=== PATIENT | female | born 2000 | race Caucasian/White ===

== ENCOUNTER 2019-03-23 09:58 | Emergency (ER) | payer SELFPAY ==
--- NOTE | 2019-03-23 10:28 | EDM.PDOC ---
ED HPI GENERAL MEDICAL PROBLEM - General Chief Complaint: General Stated Complaint: COUGH,RIGHT EAR HAS FLUID,UNABLE TO KEEP FOOD DOWN Time Seen by Provider: 03/23/19 10:15 Source of Information: Reports: Patient, RN Notes Reviewed - History of Present Illness INITIAL COMMENTS - FREE TEXT/NARRATIVE: 18-year-old female comes in with cough, congestion, wheezing, difficulty breathing. She is 14-1/2 weeks , this is her third . She does have history of asthma but typically only needs to and use her inhaler about once a month. With this infection she has developed worsening cough and wheezing became especially bad during the night and early this morning. She did do an albuterol neb treatment at home a few hours ago and did not get much relief other than getting palpitations and feeling anxious and jittery. She is having drainage from her sinuses with that this morning is coughing and spitting up some yellowish-green phlegm. There's been no fever or chills. She did have sore throat when this started 3 days ago but the throat discomfort now is mostly gone. Right Ear Pain Score (Numeric/FACES): 4 Upper Abdomen Pain Score (Numeric/FACES): 4 - Related Data Allergies Allergy/AdvReac Type Severity Reaction Status Date / Time cefdinir Allergy Delusions Verified 03/23/19 10:12 sulfamethoxazole Allergy Rash Verified 03/23/19 10:12 [From Bactrim] trimethoprim [From Bactrim] Allergy Rash Verified 03/23/19 10:12 Home Meds: Home Meds Albuterol [Ventolin HFA] 2 puff INH Q4HR 03/23/19 [History] Doxylamine Succinate [Unisom] 25 mg PO BEDTIME 03/23/19 [History] Folic Acid 2 mg PO DAILY 03/23/19 [History] Pnv No.122/Iron/Folic Acid [ Multi Tablet] 1 tab PO DAILY 03/23/19 [ History] Progesterone, Micronized [Progesterone] 200 mg PO DAILY 03/23/19 [History] Promethazine [Phenergan] 25 mg PO QID PRN 03/23/19 [History] Past Medical History Respiratory History: Reports: Asthma Psychiatric History: Reports: Depression - Past Surgical History GI Surgical History: Reports: Other (See Below) Other GI Surgeries/Procedures: endoscopy Social & Family History - Tobacco Use Smoking Status *Q: Former Smoker Used Tobacco, but Quit: Yes Month/Year Tobacco Last Used: 4mo ago - Caffeine Use Caffeine Use: Reports: Coffee, Tea Other Caffeine Use: rarely - Recreational Drug Use Recreational Drug Use: Yes Drug Use in Last 12 Months: Yes Recreational Drug Type: Reports: Marijuana/Hashish, Methamphetamine ED ROS GENERAL - Review of Systems Review Of Systems: See Below Constitutional: Denies: Fever, Chills HEENT: Reports: Rhinitis, Sinus Problem (She does have sinus congestion and drainage), Throat Pain (Gone) Respiratory: Reports: Shortness of Breath, Wheezing, Cough, Sputum Cardiovascular: Reports: Chest Pain (With coughing), Palpitations GI/Abdominal: Denies: Abdominal Pain, Vomiting Neurological: Reports: Dizziness (Mild) ED EXAM, GENERAL - Physical Exam Exam: See Below General Appearance: Alert, Mild Distress Nose: Normal Inspection Throat/Mouth: Normal Inspection, Normal Oropharynx Head: No: Facial Swelling Neck: Supple, Full Range of Motion Respiratory/Chest: No Accessory Muscle Use, Respiratory Distress (Moderate), Wheezing. No: Rhonchi Cardiovascular: Regular Rate, Rhythm GI/Abdominal: Soft, Non-Tender Neurological: Alert, Oriented, No Motor/Sensory Deficits Skin Exam: Warm, Dry, Normal Color, No Rash Course - Vital Signs Last Recorded V/S: Last Vital Signs Temp 97.4 F 03/23/19 10:07 Pulse 96 03/23/19 10:07 Resp 18 03/23/19 10:07 BP 104/51 L 03/23/19 10:07 Pulse Ox 100 03/23/19 10:58 - Orders/Labs/Meds Orders: Active Orders 24 hr Category Date Time Status Influenza Vaccine Charge [RC] .DISCHARGE Care 03/23/19 10:20 Active RT Aerosol Therapy [RC] ASDIRECTED Care 03/23/19 10:38 Active Meds: Medications Discontinued Medications Generic Name Dose Route Start Last Admin Trade Name Freq PRN Reason Stop Dose Admin Albuterol/Ipratropium 3 ml 03/23/19 10:38 03/23/19 10:58 Duoneb 3.0-0.5 Mg/3 Ml NEB 03/23/19 10:39 3 ml ONETIME ONE Administration Influenza Virus Vaccine 60 mcg 03/23/19 10:45 03/23/19 11:03 Fluzone Quad Syringe IM 03/23/19 10:46 60 mcg .ONCE ONE Administration Lorazepam 0.5 mg 03/23/19 10:49 03/23/19 11:03 Ativan PO 03/23/19 10:50 0.5 mg ONETIME ONE Administration Prednisone 40 mg 03/23/19 11:22 03/23/19 11:29 Prednisone PO 03/23/19 11:23 40 mg ONETIME ONE Administration - Re-Assessments/Exams Free Text/Narrative Re-Assessment/Exam: 03/23/19 11:23 Have given a DuoNeb, that has helped her breathing quite a lot, also did give 0.25 mg Ativan by mouth as she was quite anxious on arrival and also had palpitations when she did use her inhaler earlier this morning. She is much more relaxed, moving air much more comfortably. Liver dose of prednisone now and have her continue take prednisone 40 mg for the next 3 days to help her get through this. Discharge instructions as documented. Departure - Departure Time of Disposition: 11:24 Disposition: Home, Self-Care 01 Condition: Fair Clinical Impression: Viral upper respiratory infection, Second trimester - Discharge Information Instructions: Upper Respiratory Infection, Adult, [id number] Referrals: PCP,None [Primary Care Provider] - Forms: ED Department Discharge Additional Instructions: Rest, vaporizer or steam as needed, continue to use your albuterol inhaler every 4-6 hours as needed for wheezing, severe cough or difficulty breathing. You've been given prednisone 40 mg orally while here in the ED and you that 40 mg every morning for the next 3 days. Follow-up clinic if not much better within 2-3 days as expected or return to ED as needed if symptoms worsening in any way. - My Orders Last 24 Hours: My Active Orders 03/23/19 10:20 Influenza Vaccine Charge [RC] .DISCHARGE 03/23/19 10:38 RT Aerosol Therapy [RC] ASDIRECTED - Assessment/Plan Last 24 Hours: My Active Orders 03/23/19 10:20 Influenza Vaccine Charge [RC] .DISCHARGE 03/23/19 10:38 RT Aerosol Therapy [RC] ASDIRECTED
[2019-03-23] MEDS ORDERED: Albuterol/Ipratropium 3.0-0.5 MG/3 ML Neb Soln NEB ONE (10:38)
[2019-03-23] MEDS ORDERED: FLU Vacc QS2019-20(6MOS+)/PF 60 MCG/0.5 ML SYRINGE IM ONE (10:45)
[2019-03-23] MEDS ORDERED: LORazepam 0.5 MG Tab PO ONE (10:49)
[2019-03-23] MEDS ORDERED: predniSONE 20 MG Tab PO ONE (11:22)
== END 2019-03-23 11:40 | disposition home or self-care (01) ==
LOC: JD.ED 09:58
DX: O99.512 Diseases of the respiratory system complicating pregnancy, second trimester (principal); J06.9 Acute upper respiratory infection, unspecified; J45.909 Unspecified asthma, uncomplicated; Z3A.14 14 weeks gestation of pregnancy; Z88.1 Allergy status to other antibiotic agents; Z87.891 Personal history of nicotine dependence; Z23 Encounter for immunization; Z88.2 Allergy status to sulfonamides
CPT/HCPCS: 90471; 90686; 94640; 99284; A9270; 99283; G0008; J7620-GY

== ENCOUNTER 2019-09-18 14:50 | Inpatient (IN) | payer BC ==
[2019-09-18] MEDS ORDERED: Ampicillin 2 GM AdvVial IV ONE (15:31)
[2019-09-18] MEDS ORDERED: Sodium Chloride 0.9% 100 ML ONE (15:31)
[2019-09-18] MEDS ORDERED: Nalbuphine 10 MG/ML Syringe IVPUSH PRN (15:33)
[2019-09-18] MEDS ORDERED: Ampicillin 2 GM in Sodium Chloride 0.9% 100 ML IV ONE (15:33)
[2019-09-18] MEDS ORDERED: Sodium Chloride 0.9% 10 ML Syringe FLUSH PRN (15:33)
--- NOTE | 2019-09-18 15:36 | PCM.LDHP ---
L&D History of Present Illness - General Date of Service: 09/18/19 Admit Problem/Dx: Patient Status Order with Admit Dx/Problem 09/18/19 15:33 Patient Status [ADT] Routine Admission Diagnosis/Problem Admission Diagnosis/Problem Normal labor Source of Information: Patient History Limitations: Reports: No Limitations - History of Present Illness Introduction:: Patient is a 19 y/o at 39 2/7 wks who presents in labor. Contractions have been irregular for several days, but today became more frequent. No bleeding or LOF - Related Data Allergies/Adverse Reactions: Allergies Allergy/AdvReac Type Severity Reaction Status Date / Time cefdinir Allergy Delusions Verified 09/18/19 15:45 sulfamethoxazole Allergy Rash Verified 09/18/19 15:45 [From Bactrim] trimethoprim [From Bactrim] Allergy Rash Verified 09/18/19 15:45 Home Medications: Home Meds Albuterol [Ventolin HFA] 2 puff INH Q4HR 03/23/19 [History] Doxylamine Succinate [Unisom] 25 mg PO BEDTIME 03/23/19 [History] Folic Acid 2 mg PO DAILY 03/23/19 [History] No122/Iron/Folic Acid [ Multi Tablet] 1 tab PO DAILY 03/23/19 [ History] Sertraline [Zoloft] 100 mg PO DAILY 07/14/19 [History] Past Medical History Respiratory History: Reports: Asthma 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: , Spontaneous : 3 Para: 0 LMP (Approximate): Psychiatric History: Reports: Depression - Past Surgical History GI Surgical History: Reports: Other (See Below) Other GI Surgeries/Procedures: endoscopy Social & Family History - Tobacco Use Smoking Status *Q: Former Smoker - Caffeine Use Caffeine Use: Reports: Coffee, Tea Other Caffeine Use: rarely - Alcohol Use Alcohol Use History: No - Recreational Drug Use Recreational Drug Type: Reports: Marijuana/Hashish, Methamphetamine (remote history) H&P Review of Systems - Review of Systems: Review Of Systems: See Below General: Reports: No Symptoms Pulmonary: Reports: No Symptoms Cardiovascular: Reports: No Symptoms Gastrointestinal: Reports: Abdominal Pain Genitourinary: Reports: No Symptoms Musculoskeletal: Reports: No Symptoms Psychiatric: Reports: No Symptoms Neurological: Reports: No Symptoms L&D Exam - Exam Exam: See Below - OB Specific Contraction Intensity: Moderate Movement: Active Heart Tones: Present Heart Tones per Min: 130 Heart Rate (FHR) Variability: Moderate (6-25 bmp) - Montague Score Montague Score Cervix Position: Anterior Montague Score Consistency: Soft Montague Score Effacement: >80% Montague Score Dilation: 3-4 cm Montague Score 's Station: -2 Montague Score Total: 10 - Exam General: Alert, Oriented, Cooperative Lungs: Clear to Auscultation, Normal Respiratory Effort Cardiovascular: Regular Rate, Regular Rhythm GI/Abdominal Exam: Soft, Non-Tender Genitourinary: Normal external exam - Patient Data Result Diagrams: 09/18/19 15:45 - Problem List (1) 39 weeks gestation of SNOMED Code(s): 71547365 ICD Code: Z3A.39 - 39 WEEKS GESTATION OF Status: Acute Current Visit: Yes (2) GBS carrier SNOMED Code(s): 6039170714798 ICD Code: Z22.330 - CARRIER OF GROUP B STREPTOCOCCUS Status: Acute Current Visit: Yes Problem List Initiated/Reviewed/Updated: Yes Orders Last 24hrs: Active Orders 24 hr Category Date Time Status Patient Status [ADT] Routine ADT 09/18/19 15:33 Ordered Activity as Tolerated [RC] PFP Care 09/18/19 15:33 Ordered Communication Order [RC] ASDIRECTED Care 09/18/19 15:33 Ordered Heart Tones [RC] ASDIRECTED Care 09/18/19 15:33 Ordered Non Stress Test [RC] PER UNIT ROUTINE Care 09/18/19 15:33 Ordered Notify Provider [RC] PFP Care 09/18/19 15:33 Ordered Notify Provider [RC] PRN Care 09/18/19 15:33 Ordered Peripheral IV Care [RC] . DIRECTED Care 09/18/19 15:33 Ordered Vital Signs [RC] PER UNIT ROUTINE Care 09/18/19 15:33 Ordered Regular Diet [DIET] Diet 09/18/19 Dinner Ordered CBC W/O DIFF,HEMOGRAM [HEME] Routine Lab 09/18/19 15:33 Ordered RAPID PLASMA REAGIN,RPR [CHEM] Routine Lab 09/18/19 15:33 Ordered TYPE AND SCREEN [BBK] Routine Lab 09/18/19 15:33 Ordered Ampicillin 1 gm Med 09/18/19 15:45 Ordered Sodium Chloride 0.9% [Normal Saline] 100 ml IV Q4H Ampicillin 2 gm Med 09/18/19 15:33 Ordered Sodium Chloride 0.9% [Normal Saline] 100 ml IV ONETIME Lactated Ringers [Ringers, Lactated] 1,000 ml Med 09/18/19 15:45 Ordered IV ASDIRECTED Nalbuphine [Nubain] Med 09/18/19 15:33 Ordered 10 mg IVPUSH Q2H PRN Ondansetron [Zofran] Med 09/18/19 15:33 Ordered 4 mg IVPUSH Q4H PRN Oxytocin/Lactated Ringers [Pitocin in LR 10 Units/1,000 Med 09/18/19 15:45 Ordered ML] 10 unit in 1,000 ml IV .CONTINUOUS Sertraline Med 09/19/19 09:00 Ordered 100 mg PO DAILY Sodium Chloride 0.9% [Saline Flush] Med 09/18/19 15:33 Ordered 10 ml FLUSH ASDIRECTED PRN Electronic Heart Tones Ext w TOCO [WOMSER] Oth 09/18/19 15:33 Ordered Routine Electronic Heart Tones Internal [WOMSER] Per Unit Oth 09/18/19 15:33 Ordered Routine Peripheral IV Insertion Adult [OM.PC] Routine Oth 09/18/19 15:33 Ordered Resuscitation Status Routine Resus Stat 09/18/19 15:33 Ordered Medication Orders Ampicillin Sodium 2 gm/ Sodium (Chloride) 100 mls @ 200 mls/hr IV ONETIME ONE Stop: 09/18/19 16:02 Ampicillin Sodium 1 gm/ Sodium (Chloride) 100 mls @ 200 mls/hr IV Q4H BAO Lactated Ringer's (Ringers, Lactated) 1,000 mls @ 100 mls/hr IV ASDIRECTED BAO Oxytocin/Lactated Ringer's (Pitocin In Lr 10 Units/1,000 Ml) 10 unit in 1,000 mls @ 500 mls/hr IV .CONTINUOUS BAO Nalbuphine HCl (Nubain) 10 mg IVPUSH Q2H PRN PRN Reason: Pain Ondansetron HCl (Zofran) 4 mg IVPUSH Q4H PRN PRN Reason: Nausea/Vomiting Sodium Chloride (Saline Flush) 10 ml FLUSH ASDIRECTED PRN PRN Reason: Keep Vein Open Assessment/Plan Comment:: * labs * GBS positive, ampicillin started * Pain management per patient preference * Anticipate
[2019-09-18] MEDS ORDERED: Oxytocin/Lactated Ringers 10 UNIT/1,000 ML BAG IV SCH ×2 (15:45→23:00)
[2019-09-18] MEDS ORDERED: fentaNYL 100 MCG/2 ML SDV EPIDUR PRN (16:01)
[2019-09-18] MEDS ORDERED: Ondansetron 4 MG/2 ML SDV IVPUSH PRN (16:01)
[2019-09-18] MEDS ORDERED: ePHEDrine 50 MG/ML SDV IVPUSH PRN (16:01)
--- NOTE | 2019-09-18 16:07 | PCM.PREANE ---
Preanesthetic Assessment - Anesthesia/Transfusion/Family Hx Anesthesia History: Prior Anesthesia Without Reaction Family History of Anesthesia Reaction: No Transfusion History: No Prior Transfusion(s) Intubation History: Unknown - Review of Systems General: No Symptoms Pulmonary: No Symptoms (Asthma/Seasonal allergies/ last used inhaler (albuterol ) one week ago.) Cardiovascular: No Symptoms, Lightheadedness (Only with hypoglycemic episodes) Gastrointestinal: No Symptoms (GERD), Constipation Neurological: No Symptoms (Chronic lower back pain, history of bulging disks, and spondylolisthesis), Numbness (bilateral CTS with ) Other: Reports: Sinus Problem (seasonal allergies), Depression, Anxiety - Physical Assessment NPO Status Date: 09/18/19 NPO Status Time: 12:30 Vital Signs: HR:97 BP: 126/77 Resp: 20 Temp: 98 Sat: 99% Height: 1.55 m Weight: 108.409 kg ASA Class: 2 Mental Status: Alert & Oriented x3 Airway Class: Mallampati = 2 Dentition: Reports: Normal Dentition, Caries Thyro-Mental Finger Breadths: 3 Mouth Opening Finger Breadths: 3 ROM/Head Extension: Full Lungs: Clear to Auscultation, Normal Respiratory Effort Cardiovascular: Regular Rate, Regular Rhythm, No Murmurs - Lab Values: Laboratory Last Values WBC 15.83 K/mm3 (3.98-10.04) H 09/18/19 15:45 RBC 4.20 M/mm3 (3.98-5.22) 09/18/19 15:45 Hgb 12.2 gm/dl (11.2-15.7) 09/18/19 15:45 Hct 37.1 % (34.1-44.9) 09/18/19 15:45 MCV 88.3 fl (79.4-94.8) 09/18/19 15:45 MCH 29.0 pg (25.6-32.2) 09/18/19 15:45 MCHC 32.9 g/dl (32.2-35.5) 09/18/19 15:45 RDW Std Deviation 45.1 fL (36.4-46.3) 09/18/19 15:45 Plt Count 217 K/mm3 (182-369) 09/18/19 15:45 MPV 9.8 fl (9.4-12.3) 09/18/19 15:45 Above labs reviewed and noted and within acceptable ranges to proceed with epidural if desired. - Allergies Allergies/Adverse Reactions: Allergies Allergy/AdvReac Type Severity Reaction Status Date / Time cefdinir Allergy Delusions Verified 09/18/19 15:45 sulfamethoxazole Allergy Rash Verified 09/18/19 15:45 [From Bactrim] trimethoprim [From Bactrim] Allergy Rash Verified 09/18/19 15:45 - Anesthesia Plan Pre-Op Medication Ordered: None - Acknowledgements Anesthesia Type Planned: Epidural Pt an Appropriate Candidate for the Planned Anesthesia: Yes Alternatives and Risks of Anesthesia Discussed w Pt/Guardian: Yes Pt/Guardian Understands and Agrees with Anesthesia Plan: Yes PreAnesthesia Questionnaire Respiratory History: Reports: Asthma 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: , 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 Psychiatric History: Reports: Depression - Past Surgical History GI Surgical History: Reports: Other (See Below) Other GI Surgeries/Procedures: endoscopy - SUBSTANCE USE Smoking Status *Q: Former Smoker Recreational Drug Type: Reports: Marijuana/Hashish, Methamphetamine (remote history) - HOME MEDS Home Medications: Home Meds Albuterol [Ventolin HFA] 2 puff INH Q4HR 03/23/19 [History] Doxylamine Succinate [Unisom] 25 mg PO BEDTIME 03/23/19 [History] Folic Acid 2 mg PO DAILY 03/23/19 [History] No122/Iron/Folic Acid [ Multi Tablet] 1 tab PO DAILY 03/23/19 [ History] Sertraline [Zoloft] 100 mg PO DAILY 07/14/19 [History] - CURRENT (IN HOUSE) MEDS Current Meds: Current Medications Ampicillin Sodium 2 gm/ Sodium (Chloride) 100 mls @ 200 mls/hr IV ONETIME ONE Stop: 09/18/19 16:02 Last Admin: 09/18/19 15:40 Dose: 200 mls/hr Ampicillin Sodium 1 gm/ Sodium (Chloride) 100 mls @ 200 mls/hr IV Q4H BAO Lactated Ringer's (Ringers, Lactated) 1,000 mls @ 100 mls/hr IV ASDIRECTED BAO Oxytocin/Lactated Ringer's (Pitocin In Lr 10 Units/1,000 Ml) 10 unit in 1,000 mls @ 500 mls/hr IV .CONTINUOUS BAO Nalbuphine HCl (Nubain) 10 mg IVPUSH Q2H PRN PRN Reason: Pain Non-Formulary Medication (Sertraline) 100 mg PO DAILY BAO Ondansetron HCl (Zofran) 4 mg IVPUSH Q4H PRN PRN Reason: Nausea/Vomiting Sodium Chloride (Saline Flush) 10 ml FLUSH ASDIRECTED PRN PRN Reason: Keep Vein Open Discontinued Medications Ampicillin Sodium (Ampicillin) Confirm Administered Dose 2 gm IV .STMetaJure-MED ONE Stop: 09/18/19 15:32 Sodium Chloride (Normal Saline) Confirm Administered Dose 100 mls @ as directed .ROUTE .STK-MED ONE Stop: 09/18/19 15:32
[2019-09-18] MEDS: Acetaminophen 325 MG Tab PO PRN (18:05)
[2019-09-18] MEDS: Ondansetron 4 MG/2 ML SDV IVPUSH PRN (19:47)
[2019-09-18] MEDS: Ampicillin 1 GM in Sodium Chloride 0.9% 100 ML IV SCH (19:52)
[2019-09-18] MEDS: Lactated Ringers 1,000 ML IV SCH (20:27)
[2019-09-19] MEDS ORDERED: Bupivacaine 0.25% 10 ML SDV ONE
[2019-09-19] MEDS: Ondansetron 4 MG/2 ML SDV IVPUSH PRN (00:02)
[2019-09-19] MEDS: Ampicillin 1 GM in Sodium Chloride 0.9% 100 ML IV SCH ×3 (00:07→07:58)
[2019-09-19] MEDS: Bupivacaine/fentaNYL/NS 100 ML Bag EPIDUR SCH ×2 (00:46→06:39)
[2019-09-19] MEDS: Lactated Ringers 1,000 ML IV SCH ×4 (01:00→07:39)
[2019-09-19] MEDS: Acetaminophen 325 MG Tab PO PRN (03:54)
[2019-09-19] MEDS ORDERED: diphenhydrAMINE 50 MG/ML SDV IVPUSH ONE (04:35)
--- NOTE | 2019-09-19 07:38 | PCM.PNLD ---
Labor Progress Note - VS & Meds Vital Signs: Last Vital Signs Temp 36.7 C 09/18/19 15:33 Pulse 91 09/18/19 15:33 Resp 18 09/18/19 15:33 BP 127/70 09/18/19 15:33 Pulse Ox Active Medications: Current Medications Acetaminophen (Tylenol) 650 mg PO Q4H PRN PRN Reason: Pain Last Admin: 09/19/19 03:54 Dose: 650 mg Ephedrine Sulfate (Ephedrine Sulfate) 5 mg IVPUSH ASDIRECTED PRN PRN Reason: Hypotension Fentanyl (Sublimaze) 100 mcg EPIDUR Q3H PRN PRN Reason: Pain Last Admin: 09/19/19 00:45 Dose: 100 mcg Fentanyl/Bupivacaine HCl (Fentanyl/Bupivacaine/Ns 2 Mcg-0.125% 100 Ml) 100 ml EPIDUR ASDIRECTED BAO Last Admin: 09/19/19 06:39 Dose: 100 ml Ampicillin Sodium 1 gm/ Sodium (Chloride) 100 mls @ 200 mls/hr IV Q4H BAO Last Admin: 09/19/19 04:06 Dose: 200 mls/hr Lactated Ringer's (Ringers, Lactated) 1,000 mls @ 100 mls/hr IV ASDIRECTED BAO Last Admin: 09/19/19 06:10 Dose: 999 mls/hr Oxytocin/Lactated Ringer's (Pitocin In Lr 10 Units/1,000 Ml) 10 unit in 1,000 mls @ 500 mls/hr IV .CONTINUOUS BAO Oxytocin/Lactated Ringer's (Pitocin In Lr 10 Units/1,000 Ml) 10 unit in 1,000 mls @ 12 mls/hr IV TITRATE BAO; Protocol Last Titration: 09/19/19 05:07 Dose: 0 munits/min, 0 mls/hr Nalbuphine HCl (Nubain) 10 mg IVPUSH Q2H PRN PRN Reason: Pain Ondansetron HCl (Zofran) 4 mg IVPUSH Q4H PRN PRN Reason: Nausea/Vomiting Last Admin: 09/19/19 00:02 Dose: 4 mg Ondansetron HCl (Zofran) 4 mg IVPUSH ONETIME PRN PRN Reason: Nausea/Vomiting Sertraline HCl (Zoloft) 100 mg PO DAILY BAO Sodium Chloride (Saline Flush) 10 ml FLUSH ASDIRECTED PRN PRN Reason: Keep Vein Open Discontinued Medications Ampicillin Sodium (Ampicillin) Confirm Administered Dose 2 gm IV .STK-MED ONE Stop: 09/18/19 15:32 Last Admin: 09/18/19 17:22 Dose: Not Given Diphenhydramine HCl (Benadryl) 12.5 mg IVPUSH Q6H ONE Stop: 09/19/19 04:36 Last Admin: 09/19/19 04:46 Dose: 12.5 mg Sodium Chloride (Normal Saline) Confirm Administered Dose 100 mls @ as directed .ROUTE .STK-MED ONE Stop: 09/18/19 15:32 Last Admin: 09/18/19 17:22 Dose: Not Given Ampicillin Sodium 2 gm/ Sodium (Chloride) 100 mls @ 200 mls/hr IV ONETIME ONE Stop: 09/18/19 16:02 Last Admin: 09/18/19 15:40 Dose: 200 mls/hr - Uterine Contractions Uterine Monitoring Mode: IUPC Contraction Intensity: Moderate to Strong - Monitoring Monitor Mode: External Ultrasound Heart Rate (FHR) Baseline: 115 Heart Rate (FHR) Variability: Moderate (6-25 bmp) Accelerations: Present, 15x15 Decelerations: Early, Late, Variable, Intermittent (<50% x 20 min) Strip Review: Category II - Vaginal Exam Dilation (cm): 8 Effacement (Percent): 90 Station: 1 Cervical Position: Anterior - Labor Progress (Free Text) Labor Progress: Doing well. Since here at about 0400 for placement of IUPC/FSE patient has been on max of 2 of pitocin. Currently off as patient with a few late decelerations about 2 hours ago. Patient with change on exam. Will continue to try and augment and work towards complete dilation and vaginal delivery
[2019-09-19] MEDS ORDERED: Sertraline 50 MG Tab PO SCH (09:00)
--- NOTE | 2019-09-19 11:06 | PCM.DEL ---
L & D Note - General Info Date of Service: 09/19/19 - Delivery Note Labor: Augmented by Oxytocin Delivery Outcome: Livebirth Delivery Method: Spontaneous Vaginal Delivery-Single Delivery Mode: Spontaneous Presentation: Right Occiput Anterior (ALIYA) Nuchal Cord: None Anesthesia Type: Epidural Amniotic Fluid Description: Meconium Stained (noted at delivery, prior was thought to be clear) Episiotomy Type: None Laceration: None Placenta: Intact, Spontaneous Cord: 3 Vessels Estimated Blood Loss: 200 Resuscitation Needed: Yes [place]: Bulb Syringe, Stimulated, Warmed, Bowman Used, Warmer Used Delivery Comments (Free Text/Narrative):: Patient found to be complete and began pushing. At 1025 FHR did have a shift in baseline to 100's. At 1039 head and bradycardia into 60s noted. Vacuum applied and after one contraction head delivered from ALIYA presentation. Vacuum removed. No nuchal cord present. With downward traction shoulders and body delivered. Time of 1042. placed on maternal abdomen. Cord clamped and cut and baby taken to warmer. Cord gas segment obtained. Cord blood obtained. Placenta allowed time to separate and expelled intact. Inspection of the perineum showed no lacerations Vacuum Extractor Progress Note - Alternative Labor Strategies Considered Alternative Labor Strategies Considered:: Reports: Yes Strategies Considered:: Reports: Contraction Intensity Adequate Indications Considered:: Reports: Yes Indications:: Reports: Suspicion of Immediate or Potential Compromise Time Out:: Reports: Yes - Patient Prepared Patient Prepared:: Reports: Yes Informed Consent:: Reports: Yes Risks: Reports: Yes Anesthesia/Analgesia Adequate:: Reports: Yes - Probability of Success High Probability of Success:: Reports: Yes Weight Estimated:: Reports: AGA Patient Diabetic:: Reports: No Pelvis Adequate:: Reports: Yes Position:: ALIYA Asynclitic:: Reports: No Station:: - Application Time Maximum Application Time & Number of Pop-Offs Predetermined:: Reports: Yes Maximum Pressure Maintained in Green Zone (cm Hg):: 550 Total Application Time (min): *max=20min: 1 Number of Times Cup Disengaged:: 0 Type of Vacuum Used:: Reports: Cup: Mushroom type Vacuum Extraction: Successful - Exit Strategy Exit strategy available:: Reports: Yes and resuscitation teams readily available:: Reports: Yes - General Info Date of Service: 09/19/19 - Patient Data Vitals - Most Recent: Last Vital Signs Temp 36.7 C 09/18/19 15:33 Pulse 91 09/18/19 15:33 Resp 18 09/18/19 15:33 BP 127/70 09/18/19 15:33 Pulse Ox Weight - Most Recent: 108.409 kg I&O - Last 24 Hours: Intake & Output 09/18/19 09/19/19 09/19/19 22:59 06:59 14:59 Intake Total 1220 3700 Balance 1220 3700 - Problem List & Annotations (1) 39 weeks gestation of SNOMED Code(s): 86985268 Code(s): Z3A.39 - 39 WEEKS GESTATION OF Status: Acute Current Visit: Yes (2) GBS carrier SNOMED Code(s): 1242536533872 Code(s): Z22.330 - CARRIER OF GROUP B STREPTOCOCCUS Status: Acute Current Visit: Yes (3) Vacuum-assisted vaginal delivery SNOMED Code(s): 87067631098995738 Code(s): Z37.9 - OUTCOME OF DELIVERY, UNSPECIFIED Status: Acute Current Visit: Yes - Problem List Review Problem List Initiated/Reviewed/Updated: Yes - My Orders Last 24 Hours: My Active Orders 09/18/19 15:33 Patient Status [ADT] Routine Activity as Tolerated [RC] PFP Communication Order [RC] ASDIRECTED Heart Tones [RC] ASDIRECTED Notify Provider [RC] PFP Notify Provider [RC] PRN Nalbuphine [Nubain] 10 mg IVPUSH Q2H PRN Ondansetron [Zofran] 4 mg IVPUSH Q4H PRN Sodium Chloride 0.9% [Saline Flush] 10 ml FLUSH ASDIRECTED PRN Electronic Heart Tones Ext w TOCO [WOMSER] Routine Electronic Heart Tones Internal [WOMSER] Per Unit Routine Peripheral IV Insertion Adult [OM.PC] Routine Resuscitation Status Routine 09/18/19 15:45 Lactated Ringers [Ringers, Lactated] 1,000 ml IV ASDIRECTED Oxytocin/Lactated Ringers [Pitocin in LR 10 Units/1,000 ML] 10 unit in 1,000 ml IV .CONTINUOUS 09/18/19 17:23 Acetaminophen [Tylenol] 650 mg PO Q4H PRN 09/18/19 20:00 Ampicillin 1 gm Sodium Chloride 0.9% [Normal Saline] 100 ml IV Q4H 09/18/19 23:00 Oxytocin/Lactated Ringers [Pitocin in LR 10 Units/1,000 ML] 10 unit in 1,000 ml IV TITRATE 09/18/19 Dinner Regular Diet [DIET] 09/19/19 09:00 Sertraline [Zoloft] 100 mg PO DAILY - Assessment Assessment:: PPD#0 - Plan Plan:: * Routine cares * Breast feeding * Discharge home in 1-2 days
[2019-09-19] MEDS ORDERED: Acetaminophen 325 MG Tab PO PRN (11:59)
[2019-09-19] MEDS ORDERED: Benzocaine/Menthol 20%-0.5% Spray 56 GM Canister TOP PRN (11:59)
[2019-09-19] MEDS ORDERED: Witch Hazel Medicated Pads 40/Jar TOP PRN (11:59)
[2019-09-19] MEDS: Ibuprofen 600 MG Tab PO PRN (18:53)
[2019-09-19] MEDS: Sertraline 50 MG Tab PO SCH (21:05)
[2019-09-19] MEDS: Docusate Sodium 100 MG Cap PO PRN (21:05)
--- NOTE | 2019-09-20 06:51 | PCM.PNPP ---
- General Info Date of Service: 09/20/19 Functional Status: Reports: Pain Controlled, Tolerating Diet, Ambulating, Urinating - Review of Systems General: Reports: No Symptoms Pulmonary: Reports: No Symptoms Cardiovascular: Reports: No Symptoms Gastrointestinal: Reports: No Symptoms Genitourinary: Reports: No Symptoms Musculoskeletal: Reports: Back Pain Neurological: Reports: No Symptoms - Patient Data Vital Signs - Most Recent: Last Vital Signs Temp 36.4 C 09/20/19 03:13 Pulse 75 09/20/19 03:13 Resp 15 09/20/19 03:13 BP 99/57 L 09/20/19 03:13 Pulse Ox 96 09/20/19 03:13 Weight - Most Recent: 108.409 kg I&O - Last 24 Hours: Intake & Output 09/19/19 09/19/19 09/20/19 14:59 22:59 06:59 Intake Total 4060 420 Balance 4060 420 Med Orders - Current: Current Medications Acetaminophen (Tylenol) 650 mg PO Q4H PRN PRN Reason: mild pain or fever Last Admin: 09/20/19 00:19 Dose: 650 mg Benzocaine/Menthol (Dermoplast Pain Relief [place]) 0 gm TOP ASDIRECTED PRN PRN Reason: Perineal Comfort Measure Docusate Sodium (Colace) 100 mg PO BID PRN PRN Reason: Constipation Last Admin: 09/19/19 21:05 Dose: 100 mg Ibuprofen (Motrin) 600 mg PO Q6H PRN PRN Reason: Mild pain or fever Last Admin: 09/19/19 18:53 Dose: 600 mg Sertraline HCl (Zoloft) 100 mg PO BEDTIME BAO Last Admin: 09/19/19 21:05 Dose: 100 mg Witch Jose Angel (Tucks) 1 pad TOP ASDIRECTED PRN PRN Reason: Perineal Comfort Measure Discontinued Medications Acetaminophen (Tylenol) 650 mg PO Q4H PRN PRN Reason: Pain Last Admin: 09/19/19 03:54 Dose: 650 mg Ampicillin Sodium (Ampicillin) Confirm Administered Dose 2 gm IV .STK-MED ONE Stop: 09/18/19 15:32 Last Admin: 09/18/19 17:22 Dose: Not Given Diphenhydramine HCl (Benadryl) 12.5 mg IVPUSH Q6H ONE Stop: 09/19/19 04:36 Last Admin: 09/19/19 04:46 Dose: 12.5 mg Ephedrine Sulfate (Ephedrine Sulfate) 5 mg IVPUSH ASDIRECTED PRN PRN Reason: Hypotension Fentanyl (Sublimaze) 100 mcg EPIDUR Q3H PRN PRN Reason: Pain Last Admin: 09/19/19 00:45 Dose: 100 mcg Fentanyl/Bupivacaine HCl (Fentanyl/Bupivacaine/Ns 2 Mcg-0.125% 100 Ml) 100 ml EPIDUR ASDIRECTED [facility] Last Admin: 09/19/19 06:39 Dose: 100 ml Sodium Chloride (Normal Saline) Confirm Administered Dose 100 mls @ as directed .ROUTE .STK-MED ONE Stop: 09/18/19 15:32 Last Admin: 09/18/19 17:22 Dose: Not Given Ampicillin Sodium 2 gm/ Sodium (Chloride) 100 mls @ 200 mls/hr IV ONETIME ONE Stop: 09/18/19 16:02 Last Admin: 09/18/19 15:40 Dose: 200 mls/hr Ampicillin Sodium 1 gm/ Sodium (Chloride) 100 mls @ 200 mls/hr IV Q4H [facility] Last Admin: 09/19/19 07:58 Dose: 200 mls/hr Lactated Ringer's (Ringers, Lactated) 1,000 mls @ 100 mls/hr IV ASDIRECTED [facility] Last Admin: 09/19/19 07:39 Dose: 999 mls/hr Oxytocin/Lactated Ringer's (Pitocin In Lr 10 Units/1,000 Ml) 10 unit in 1,000 mls @ 500 mls/hr IV .CONTINUOUS [facility] Oxytocin/Lactated Ringer's (Pitocin In Lr 10 Units/1,000 Ml) 10 unit in 1,000 mls @ 12 mls/hr IV TITRATE [facility]; Protocol Last Titration: 09/19/19 05:07 Dose: 0 munits/min, 0 mls/hr Nalbuphine HCl (Nubain) 10 mg IVPUSH Q2H PRN PRN Reason: Pain Ondansetron HCl (Zofran) 4 mg IVPUSH Q4H PRN PRN Reason: Nausea/Vomiting Last Admin: 09/19/19 00:02 Dose: 4 mg Ondansetron HCl (Zofran) 4 mg IVPUSH ONETIME PRN PRN Reason: Nausea/Vomiting Sertraline HCl (Zoloft) 100 mg PO DAILY BAO Sodium Chloride (Saline Flush) 10 ml FLUSH ASDIRECTED PRN PRN Reason: Keep Vein Open - Interaction Disposition, : in Room with Family Interaction: Holding Feeding: Attempted ; Nursed Fair/Poor Support Person: - Recovery Exam Fundal Tone: Firm Fundal Level: 1 Fingerbreadths Below Umbilicus Fundal Placement: Midline Lochia Amount: Small Lochia Color: Rubra/Red Perineum Description: Intact, Minimal Bruising/Swelling Episiotomy/Laceration: None Bladder Status: Nonpalpable, Voiding Urinary Elimination: Voided - Exam General: Alert, Oriented, Cooperative GI/Abdominal Exam: Soft, Non-Tender Extremities: Normal Inspection Skin: Warm, Dry, Intact - Problem List & Annotations (1) 39 weeks gestation of SNOMED Code(s): 91403216 Code(s): Z3A.39 - 39 WEEKS GESTATION OF Status: Acute Current Visit: Yes (2) GBS carrier SNOMED Code(s): 8229198285821 Code(s): Z22.330 - CARRIER OF GROUP B STREPTOCOCCUS Status: Acute Current Visit: Yes (3) Vacuum-assisted vaginal delivery SNOMED Code(s): 19055530182870838 Code(s): Z37.9 - OUTCOME OF DELIVERY, UNSPECIFIED Status: Acute Current Visit: Yes - Problem List Review Problem List Initiated/Reviewed/Updated: Yes - My Orders Last 24 Hours: My Active Orders 09/19/19 11:59 Activity as Tolerated [RC] PER UNIT ROUTINE Vital Signs [RC] 09,15,21,03 Acetaminophen [Tylenol] 650 mg PO Q4H PRN Benzocaine/Menthol [Dermoplast Pain Relief [place]] See Dose Instructions TOP ASDIRECTED PRN Docusate Sodium [Colace] 100 mg PO BID PRN Ibuprofen [Motrin] 600 mg PO Q6H PRN witch Jose Angel [Tucks] 1 pad TOP ASDIRECTED PRN Assess Lochia [WOMSER] Per Unit Routine Assess Uterine Involution [WOMSER] Per Unit Routine Breast Pump [WOMSER] Per Unit Routine Heat Therapy [OM.PC] PRN Ice Therapy [OM.PC] Per Unit Routine Perineal Care [OM.PC] Per Unit Routine Peripheral IV Discontinue [OM.PC] Routine Sitz Bath [OM.PC] Per Unit Routine 09/19/19 21:00 Sertraline [Zoloft] 100 mg PO BEDTIME 09/19/19 Lunch Regular Diet [DIET] 09/20/19 11:59 Heat Therapy [OM.PC] PRN - Assessment Assessment:: PPD#1 - Plan Plan:: * Routine cares * Breast feeding * Discharge home tomorrow
[2019-09-20] MEDS: Docusate Sodium 100 MG Cap PO PRN ×2 (12:07→20:53)
--- NOTE | 2019-09-20 15:37 | PCM48HPAN ---
Post Anesthesia Note - EVALUATION WITHIN 48HRS OF ANESTHETIC Vital Signs in Normal Range: Yes Patient Participated in Evaluation: Yes Respiratory Function Stable: Yes Airway Patent: Yes Cardiovascular Function Stable: Yes Hydration Status Stable: Yes Pain Control Satisfactory: Yes Nausea and Vomiting Control Satisfactory: Yes Mental Status Recovered: Yes Vital Signs: Last Vital Signs Temp 36.7 C 09/20/19 08:56 Pulse 75 09/20/19 03:13 Resp 14 09/20/19 08:56 BP 111/53 L 09/20/19 08:56 Pulse Ox 96 09/20/19 03:13
[2019-09-20] MEDS: Sertraline 50 MG Tab PO SCH (20:52)
[2019-09-20] MEDS: Ibuprofen 600 MG Tab PO PRN (20:54)
--- NOTE | 2019-09-21 06:26 | PCM.DCSUM1 ---
Discharge Summary - Discharge Data Discharge Date: 09/21/19 Discharge Disposition: Home, Self-Care 01 Condition: Good - Referral to Home Health Primary Care Physician: Anahi Duron MD - Discharge Diagnosis/Problem(s) (1) 39 weeks gestation of SNOMED Code(s): 61575879 ICD Code: Z3A.39 - 39 WEEKS GESTATION OF Status: Acute Current Visit: Yes (2) GBS carrier SNOMED Code(s): 1150170460621 ICD Code: Z22.330 - CARRIER OF GROUP B STREPTOCOCCUS Status: Acute Current Visit: Yes (3) Vacuum-assisted vaginal delivery SNOMED Code(s): 11878463678710119 ICD Code: Z37.9 - OUTCOME OF DELIVERY, UNSPECIFIED Status: Acute Current Visit: Yes - Patient Summary/Data Complications: None Consults: None Recommended Follow-up Testing/Procedures: Follow up in 3 weeks for check Hospital Course: 19 y/o at 39 2/7 wks presented in early labor. Was augmented with pitocin. She made good change. With pushing effort there was a bradycardia which required outlet vacuum assistance. See delivery note. did well and was discharged home on PPD#2 - Patient Instructions Diet: Regular Diet as Tolerated Activity: As Tolerated Activity, Other: Pelvic rest for 6 weeks Driving: May Drive Today Showering/Bathing: May Shower Showering/Bathing, Other: may bathe Notify Provider of: Fever, Increased Pain, Swelling and Redness, Drainage, Nausea and/or Vomiting - Discharge Plan *PRESCRIPTION DRUG MONITORING PROGRAM REVIEWED*: No *COPY OF PRESCRIPTION DRUG MONITORING REPORT IN PATIENT DANIEL: No Home Medications: Home Meds Albuterol [Proventil Neb Soln] 0.63 mg NEB Q6H 09/18/19 [History] Albuterol [Ventolin HFA] 2 puff .XX Q4HR 09/18/19 [History] Budesonide/Formoterol Fumarate [Symbicort 160-4.5 Mcg Inhaler] 6 gm IH BID 09/17 [History] Docusate Sodium [Colace] 100 mg PO BID PRN 09/18/19 [History] Loratadine [Claritin] 10 mg PO DAILY 09/18/19 [History] Omeprazole Magnesium [Prilosec Otc] 40 mg PO DAILY 09/18/19 [History] No122/Iron/Folic Acid [ Multi Tablet] 1 each PO DAILY 09/18/19 [History] Sertraline [Zoloft] 100 mg PO DAILY 09/18/19 [History] Acetaminophen [Tylenol] 650 mg PO Q4H PRN tablet 09/21/19 [Rx] Ibuprofen [Motrin] 600 mg PO Q6H PRN tablet 09/21/19 [Rx] Patient Handouts: Baby Blues, Care After Vaginal Delivery Referrals: Anahi Duron MD [Primary Care Provider] - (3 weeks for check) - Discharge Summary/Plan Comment DC Time >30 min.: No - Patient Data Vitals - Most Recent: Last Vital Signs Temp 36.6 C 09/21/19 03:19 Pulse 66 09/21/19 03:19 Resp 16 09/21/19 03:19 BP 119/86 09/21/19 03:19 Pulse Ox 96 09/21/19 03:19 Weight - Most Recent: 108.409 kg I&O - Last 24 hours: Intake & Output 09/20/19 09/20/19 09/21/19 14:59 22:59 06:59 Intake Total 120 230 Balance 120 230 Med Orders - Current: Current Medications Acetaminophen (Tylenol) 650 mg PO Q4H PRN PRN Reason: mild pain or fever Last Admin: 09/20/19 00:19 Dose: 650 mg Benzocaine/Menthol (Dermoplast Pain Relief [place]) 0 gm TOP ASDIRECTED PRN PRN Reason: Perineal Comfort Measure Docusate Sodium (Colace) 100 mg PO BID PRN PRN Reason: Constipation Last Admin: 09/20/19 20:53 Dose: 100 mg Ibuprofen (Motrin) 600 mg PO Q6H PRN PRN Reason: Mild pain or fever Last Admin: 09/20/19 20:54 Dose: 600 mg Sertraline HCl (Zoloft) 100 mg PO BEDTIME BAO Last Admin: 09/20/19 20:52 Dose: 100 mg Witch Shahida (Tucks) 1 pad TOP ASDIRECTED PRN PRN Reason: Perineal Comfort Measure Discontinued Medications Acetaminophen (Tylenol) 650 mg PO Q4H PRN PRN Reason: Pain Last Admin: 09/19/19 03:54 Dose: 650 mg Ampicillin Sodium (Ampicillin) Confirm Administered Dose 2 gm IV .[facility]-MED ONE Stop: 09/18/19 15:32 Last Admin: 09/18/19 17:22 Dose: Not Given Bupivacaine HCl (Sensorcaine-Mpf 0.25%) 10 ml .ROUTE .[facility]-MED ONE Stop: 09/19/19 00:01 Diphenhydramine HCl (Benadryl) 12.5 mg IVPUSH Q6H ONE Stop: 09/19/19 04:36 Last Admin: 09/19/19 04:46 Dose: 12.5 mg Ephedrine Sulfate (Ephedrine Sulfate) 5 mg IVPUSH ASDIRECTED PRN PRN Reason: Hypotension Fentanyl (Sublimaze) 100 mcg EPIDUR Q3H PRN PRN Reason: Pain Last Admin: 09/19/19 00:45 Dose: 100 mcg Fentanyl/Bupivacaine HCl (Fentanyl/Bupivacaine/Ns 2 Mcg-0.125% 100 Ml) 100 ml EPIDUR ASDIRECTED [facility] Last Admin: 09/19/19 06:39 Dose: 100 ml Sodium Chloride (Normal Saline) Confirm Administered Dose 100 mls @ as directed .ROUTE .[facility] ONE Stop: 09/18/19 15:32 Last Admin: 09/18/19 17:22 Dose: Not Given Ampicillin Sodium 2 gm/ Sodium (Chloride) 100 mls @ 200 mls/hr IV ONETIME ONE Stop: 09/18/19 16:02 Last Admin: 09/18/19 15:40 Dose: 200 mls/hr Ampicillin Sodium 1 gm/ Sodium (Chloride) 100 mls @ 200 mls/hr IV Q4H [facility]O Last Admin: 09/19/19 07:58 Dose: 200 mls/hr Lactated Ringer's (Ringers, Lactated) 1,000 mls @ 100 mls/hr IV ASDIRECTED [facility]O Last Admin: 09/19/19 07:39 Dose: 999 mls/hr Oxytocin/Lactated Ringer's (Pitocin In Lr 10 Units/1,000 Ml) 10 unit in 1,000 mls @ 500 mls/hr IV .CONTINUOUS [facility]O Oxytocin/Lactated Ringer's (Pitocin In Lr 10 Units/1,000 Ml) 10 unit in 1,000 mls @ 12 mls/hr IV TITRATE [facility]; Protocol Last Titration: 09/19/19 05:07 Dose: 0 munits/min, 0 mls/hr Nalbuphine HCl (Nubain) 10 mg IVPUSH Q2H PRN PRN Reason: Pain Ondansetron HCl (Zofran) 4 mg IVPUSH Q4H PRN PRN Reason: Nausea/Vomiting Last Admin: 09/19/19 00:02 Dose: 4 mg Ondansetron HCl (Zofran) 4 mg IVPUSH ONETIME PRN PRN Reason: Nausea/Vomiting Sertraline HCl (Zoloft) 100 mg PO DAILY [facility] Last Admin: 09/20/19 19:41 Dose: Not Given Sodium Chloride (Saline Flush) 10 ml FLUSH ASDIRECTED PRN PRN Reason: Keep Vein Open
--- NOTE | 2019-09-21 06:26 | PCM.PNPP ---
- General Info Date of Service: 09/21/19 Functional Status: Reports: Pain Controlled, Tolerating Diet, Ambulating, Urinating - Review of Systems General: Reports: No Symptoms Pulmonary: Reports: No Symptoms Cardiovascular: Reports: No Symptoms Gastrointestinal: Reports: No Symptoms Genitourinary: Reports: No Symptoms Musculoskeletal: Reports: Back Pain Skin: Reports: No Symptoms Neurological: Reports: No Symptoms - Patient Data Vital Signs - Most Recent: Last Vital Signs Temp 36.6 C 09/21/19 03:19 Pulse 66 09/21/19 03:19 Resp 16 09/21/19 03:19 BP 119/86 09/21/19 03:19 Pulse Ox 96 09/21/19 03:19 Weight - Most Recent: 108.409 kg I&O - Last 24 Hours: Intake & Output 09/20/19 09/20/19 09/21/19 14:59 22:59 06:59 Intake Total 120 230 Balance 120 230 Med Orders - Current: Current Medications Acetaminophen (Tylenol) 650 mg PO Q4H PRN PRN Reason: mild pain or fever Last Admin: 09/20/19 00:19 Dose: 650 mg Benzocaine/Menthol (Dermoplast Pain Relief [place]) 0 gm TOP ASDIRECTED PRN PRN Reason: Perineal Comfort Measure Docusate Sodium (Colace) 100 mg PO BID PRN PRN Reason: Constipation Last Admin: 09/20/19 20:53 Dose: 100 mg Ibuprofen (Motrin) 600 mg PO Q6H PRN PRN Reason: Mild pain or fever Last Admin: 09/20/19 20:54 Dose: 600 mg Sertraline HCl (Zoloft) 100 mg PO BEDTIME BAO Last Admin: 09/20/19 20:52 Dose: 100 mg Witch Shahida (Tucks) 1 pad TOP ASDIRECTED PRN PRN Reason: Perineal Comfort Measure Discontinued Medications Acetaminophen (Tylenol) 650 mg PO Q4H PRN PRN Reason: Pain Last Admin: 09/19/19 03:54 Dose: 650 mg Ampicillin Sodium (Ampicillin) Confirm Administered Dose 2 gm IV .STK-MED ONE Stop: 09/18/19 15:32 Last Admin: 09/18/19 17:22 Dose: Not Given Bupivacaine HCl (Sensorcaine-Mpf 0.25%) 10 ml .ROUTE .STK-MED ONE Stop: 09/19/19 00:01 Diphenhydramine HCl (Benadryl) 12.5 mg IVPUSH Q6H ONE Stop: 09/19/19 04:36 Last Admin: 09/19/19 04:46 Dose: 12.5 mg Ephedrine Sulfate (Ephedrine Sulfate) 5 mg IVPUSH ASDIRECTED PRN PRN Reason: Hypotension Fentanyl (Sublimaze) 100 mcg EPIDUR Q3H PRN PRN Reason: Pain Last Admin: 09/19/19 00:45 Dose: 100 mcg Fentanyl/Bupivacaine HCl (Fentanyl/Bupivacaine/Ns 2 Mcg-0.125% 100 Ml) 100 ml EPIDUR ASDIRECTED [facility] Last Admin: 09/19/19 06:39 Dose: 100 ml Sodium Chloride (Normal Saline) Confirm Administered Dose 100 mls @ as directed .ROUTE .STK-MED ONE Stop: 09/18/19 15:32 Last Admin: 09/18/19 17:22 Dose: Not Given Ampicillin Sodium 2 gm/ Sodium (Chloride) 100 mls @ 200 mls/hr IV ONETIME ONE Stop: 09/18/19 16:02 Last Admin: 09/18/19 15:40 Dose: 200 mls/hr Ampicillin Sodium 1 gm/ Sodium (Chloride) 100 mls @ 200 mls/hr IV Q4H BAO Last Admin: 09/19/19 07:58 Dose: 200 mls/hr Lactated Ringer's (Ringers, Lactated) 1,000 mls @ 100 mls/hr IV ASDIRECTED [facility] Last Admin: 09/19/19 07:39 Dose: 999 mls/hr Oxytocin/Lactated Ringer's (Pitocin In Lr 10 Units/1,000 Ml) 10 unit in 1,000 mls @ 500 mls/hr IV .CONTINUOUS [facility] Oxytocin/Lactated Ringer's (Pitocin In Lr 10 Units/1,000 Ml) 10 unit in 1,000 mls @ 12 mls/hr IV TITRATE [facility]; Protocol Last Titration: 09/19/19 05:07 Dose: 0 munits/min, 0 mls/hr Nalbuphine HCl (Nubain) 10 mg IVPUSH Q2H PRN PRN Reason: Pain Ondansetron HCl (Zofran) 4 mg IVPUSH Q4H PRN PRN Reason: Nausea/Vomiting Last Admin: 09/19/19 00:02 Dose: 4 mg Ondansetron HCl (Zofran) 4 mg IVPUSH ONETIME PRN PRN Reason: Nausea/Vomiting Sertraline HCl (Zoloft) 100 mg PO DAILY [facility] Last Admin: 09/20/19 19:41 Dose: Not Given Sodium Chloride (Saline Flush) 10 ml FLUSH ASDIRECTED PRN PRN Reason: Keep Vein Open - Interaction Disposition, : [place] in Room with Family Infant Interaction: Holding Infant Feeding: Attempted ; Nursed Fair/Poor Support Person: - Recovery Exam Fundal Tone: Firm Fundal Level: 1 Fingerbreadths Below Umbilicus Fundal Placement: Midline Lochia Amount: Small Lochia Color: Rubra/Red Perineum Description: Intact, Minimal Bruising/Swelling Episiotomy/Laceration: None Bladder Status: Nonpalpable, Voiding Urinary Elimination: Voided - Exam General: Alert, Oriented, Cooperative GI/Abdominal Exam: Soft, Non-Tender Extremities: Normal Inspection Skin: Warm, Dry, Intact - Problem List & Annotations (1) 39 weeks gestation of SNOMED Code(s): 97215227 Code(s): Z3A.39 - 39 WEEKS GESTATION OF Status: Acute Current Visit: Yes (2) GBS carrier SNOMED Code(s): 3262970912605 Code(s): Z22.330 - CARRIER OF GROUP B STREPTOCOCCUS Status: Acute Current Visit: Yes (3) Vacuum-assisted vaginal delivery SNOMED Code(s): 66628740612981552 Code(s): Z37.9 - OUTCOME OF DELIVERY, UNSPECIFIED Status: Acute Current Visit: Yes - Problem List Review Problem List Initiated/Reviewed/Updated: Yes - My Orders Last 24 Hours: My Active Orders 09/20/19 11:59 Heat Therapy [OM.PC] PRN 09/21/19 06:25 Ready for Discharge [RC] PER UNIT ROUTINE - Assessment Assessment:: PPD#2 - Plan Plan:: * Routine cares * Breast feeding * Discharge home today
[2019-09-21] MEDS: Ibuprofen 600 MG Tab PO PRN (07:52)
== END 2019-09-21 15:00 | disposition home or self-care (01) | DRG 560 ==
LOC: JD.OBCHECK 14:50 → JD.OB 15:33 → OBSVTOIN 09-19 10:42 → JD.OB 09-19 10:43
PROVIDERS: ADMIT Obstetrics & Gynecology; ATTEND Obstetrics & Gynecology
PROC: 10D07Z6 Extraction of Products of Conception, Vacuum, Via Natural or Artificial Opening (ICD-10-PCS; principal; 2019-09-19)
PROC: 3E0R3BZ Introduction of Anesthetic Agent into Spinal Canal, Percutaneous Approach (ICD-10-PCS; 2019-09-19)
PROC: 10H07YZ Insertion of Other Device into Products of Conception, Via Natural or Artificial Opening (ICD-10-PCS; 2019-09-19)
DX: O99.824 Streptococcus B carrier state complicating childbirth (principal); Z3A.39 39 weeks gestation of pregnancy; Z37.0 Single live birth; O99.52 Diseases of the respiratory system complicating childbirth; J45.909 Unspecified asthma, uncomplicated; O77.0 Labor and delivery complicated by meconium in amniotic fluid; O76 Abnormality in fetal heart rate and rhythm complicating labor and delivery; Z87.891 Personal history of nicotine dependence; O99.344 Other mental disorders complicating childbirth; F32.9 Major depressive disorder, single episode, unspecified
CPT/HCPCS: 36415; 51702; 59025; 59409; 80306; 81003; 85027; 86592; 86850; 86900; 86901; A9270-GY; J0290; J1200; J2405; J2590; J3010; J3490; J7050; J7120

== ENCOUNTER 2020-07-14 21:07 | Emergency (ER) | payer BC, MEDICAID ==
[2020-07-14] MEDS ORDERED: Sodium Chloride 0.9% 1,000 ML IV ONE (21:28)
[2020-07-14] MEDS ORDERED: Ondansetron 4 MG/2 ML SDV IVPUSH ONE (21:28)
--- NOTE | 2020-07-14 21:35 | EDM.PDOC ---
ED HPI GENERAL MEDICAL PROBLEM - General Chief Complaint: Gastrointestinal Problem Stated Complaint: FEVER AND THROWING UP Time Seen by Provider: 07/14/20 21:20 Source of Information: Reports: Patient History Limitations: Reports: No Limitations, Other (ED vital signs reveal a temperature 98.1, pulse of 97, respiratory rate of 20, blood pressure 127/81, pulse ox 97% on room air) - History of Present Illness INITIAL COMMENTS - FREE TEXT/NARRATIVE: 20-year-old female presents to the emergency department with complaints of that nausea, vomiting and diarrhea. Patient states she has also had a fever today as high as 102. She states this started this morning and she has vomited approximately 10 times and has had 3 diarrhea stools. He also is having intermittent abdominal pain as she described as burning that comes and goes prior to vomiting. She states that she has last vomited about 25 minutes ago. She states she was finally able to eat a few sips of water down just prior to registering in the emergency department. She states that her infant daughter has also had emesis today and has been very fussy. She suspects they have the same thing. abd Pain Score (Numeric/FACES): 6 - Related Data Allergies Allergy/AdvReac Type Severity Reaction Status Date / Time sulfamethoxazole Allergy Rash Verified 07/14/20 21:19 [From Bactrim] trimethoprim [From Bactrim] Allergy Rash Verified 07/14/20 21:19 cefdinir AdvReac Delusions Verified 07/14/20 21:19 Home Meds: Home Meds Albuterol [Proventil Neb Soln] 0.63 mg NEB Q6H 09/18/19 [History] Albuterol [Ventolin HFA] 2 puff .XX Q4HR 09/18/19 [History] Budesonide/Formoterol Fumarate [Symbicort 160-4.5 Mcg Inhaler] 6 gm IH BID 09/18/19 [History] Docusate Sodium [Colace] 100 mg PO BID PRN 09/18/19 [History] Loratadine [Claritin] 10 mg PO DAILY 09/18/19 [History] Omeprazole Magnesium [Prilosec Otc] 40 mg PO DAILY 09/18/19 [History] No122/Iron/Folic Acid [ Multi Tablet] 1 each PO DAILY 09/18/19 [History] Sertraline [Zoloft] 100 mg PO DAILY 09/18/19 [History] Acetaminophen [Tylenol] 650 mg PO Q4H PRN tablet 09/21/19 [Rx] Ibuprofen [Motrin] 600 mg PO Q6H PRN tablet 09/21/19 [Rx] Ondansetron [Zofran ODT] 4 mg PO Q6H PRN #10 tab.dis 07/14/20 [Rx] Past Medical History HEENT History: Reports: Impaired Vision, Other (See Below) Other HEENT History: Scar tissue on ear drums Respiratory History: Reports: Asthma Gastrointestinal History: Reports: Chronic Constipation, GERD 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: , 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 Musculoskeletal History: Reports: Back Pain, Chronic, Other (See Below) Other Musculoskeletal History: Lower back injury, buldging discs Neurological History: Reports: Headaches, Chronic, Migraines Psychiatric History: Reports: Depression Endocrine/Metabolic History: Reports: Obesity/BMI 30+ - Infectious Disease History Infectious Disease History: Reports: Herpes, Human Papilloma Virus (HPV) - Past Surgical History HEENT Surgical History: Reports: Oral Surgery GI Surgical History: Reports: Other (See Below) Other GI Surgeries/Procedures: endoscopy Musculoskeletal Surgical History: Reports: Carpal Tunnel Social & Family History - Family History Family Medical History: No Pertinent Family History - Tobacco Use Tobacco Use Status *Q: Never Tobacco User - Caffeine Use Caffeine Use: Reports: Coffee, Tea Other Caffeine Use: rarely - Recreational Drug Use Recreational Drug Use: No ED ROS GENERAL - Review of Systems Review Of Systems: See Below Constitutional: Reports: Fever, Chills HEENT: Reports: No Symptoms Respiratory: Reports: No Symptoms Cardiovascular: Reports: No Symptoms Endocrine: Reports: No Symptoms GI/Abdominal: Reports: Abdominal Pain (Arrived as generalized, intermittent and burning), Diarrhea (Proximately 3 times today), Nausea, Vomiting (Proximately 10 times today) : Reports: No Symptoms Musculoskeletal: Reports: No Symptoms Skin: Reports: No Symptoms Neurological: Reports: No Symptoms Psychiatric: Reports: No Symptoms Hematologic/Lymphatic: Reports: No Symptoms Immunologic: Reports: No Symptoms ED EXAM, GI/ABD - Physical Exam Exam: See Below Exam Limited By: No Limitations General Appearance: Alert, WD/WN, Mild Distress Ears: Normal External Exam Nose: Normal Inspection Throat/Mouth: Normal Inspection, Normal Voice, No Airway Compromise Head: Atraumatic, Normocephalic Neck: Normal Inspection Respiratory/Chest: No Respiratory Distress, Lungs Clear, Normal Breath Sounds, No Accessory Muscle Use, Chest Non-Tender Cardiovascular: Normal Peripheral Pulses, Regular Rate, Rhythm, No Murmur GI/Abdominal Exam: Soft (Full active), No Distention, Tender (In all 4 quadrants), Abnormal Bowel Sounds (Female) Exam: Deferred Rectal (Female) Exam: Deferred Back Exam: Normal Inspection, Full Range of Motion Extremities: Normal Inspection, Normal Range of Motion, Non-Tender, No Pedal Edema, Normal Capillary Refill Neurological: Alert, Oriented, Normal Cognition Psychiatric: Normal Affect, Normal Mood Skin Exam: Warm, Dry, Intact, Normal Color, No Rash Lymphatic: No Adenopathy Course - Vital Signs Text/Narrative:: 20-year-old female presents with nausea, vomiting, fever and diarrhea that started this morning. Patient states that she developed generalized burning abdominal pain that is intermittent. She states she develops the pain and then has vomiting and diarrhea and then feels better. She states she vomited approximately 10 times today and has had 3 diarrhea stools. She is also had a fever as high as 102 today. I have ordered a liter of normal saline wide open as she is likely dehydrated she states that her hands are cramping. Zofran, labs and a flatplate of the abdomen. Last Recorded V/S: Last Vital Signs Temp 98.1 F 07/14/20 21:16 Pulse 97 07/14/20 21:16 Resp 20 07/14/20 21:16 BP 127/81 07/14/20 21:16 Pulse Ox 97 07/14/20 21:16 - Orders/Labs/Meds Orders: Active Orders 24 hr Category Date Time Status Abdomen 1V Flat [CR] Stat Exams 07/14/20 21:28 Taken Alum Hydrox/Mag Hydrox/Simeth [Mag-Al Plus] Med 07/14/20 22:40 Once 30 ml PO ONETIME ONE Labs: Laboratory Tests 07/14/20 07/14/20 Range/Units 22:00 22:00 WBC 9.55 (3.98-10.04) K/mm3 RBC 5.15 (3.98-5.22) M/mm3 Hgb 13.9 D (11.2-15.7) gm/dl Hct 42.8 (34.1-44.9) % MCV 83.1 D (79.4-94.8) fl MCH 27.0 (25.6-32.2) pg MCHC 32.5 (32.2-35.5) g/dl RDW Std Deviation 40.7 (36.4-46.3) fL Plt Count 237 (182-369) K/mm3 MPV 9.3 L (9.4-12.3) fl Neut % (Auto) 87.9 H (34.0-71.1) % Lymph % (Auto) 7.2 L (19.3-51.7) % [place]ell % (Auto) 4.3 L (4.7-12.5) % Eos % (Auto) 0.2 L (0.7-5.8) Baso % (Auto) 0.2 (0.1-1.2) % Neut # (Auto) 8.39 H (1.56-6.13) K/mm3 Lymph # (Auto) 0.69 L (1.18-3.74) K/mm3 [place]ell # (Auto) 0.41 H (0.24-0.36) K/mm3 Eos # (Auto) 0.02 L (0.04-0.36) K/mm3 Baso # (Auto) 0.02 (0.01-0.08) K/mm3 Manual Slide Review Abnormal smear Sodium 146 H (136-145) mEq/L Potassium 3.3 L (3.5-5.1) mEq/L Chloride 104 (98-107) mEq/L Carbon Dioxide 22 (21-32) mEq/L Anion Gap 23.3 H (5-15) BUN 22 H (7-18) mg/dL Creatinine 0.9 (0.55-1.02) mg/dL Est Cr Clr Drug Dosing 70.43 mL/min Estimated GFR (MDRD) > 60 (>60) mL/min BUN/Creatinine Ratio 24.4 H (14-18) Glucose 80 (74-106) mg/dL Calcium 8.9 (8.5-10.1) mg/dL Magnesium 1.8 (1.8-2.4) mg/dl Total Bilirubin 1.4 H (0.2-1.0) mg/dL AST 22 (15-37) U/L ALT 23 (14-59) U/L Alkaline Phosphatase 115 (46-116) U/L Total Protein 7.0 (6.4-8.2) g/dl Albumin 3.8 (3.4-5.0) g/dl Globulin 3.2 gm/dL Albumin/Globulin Ratio 1.2 (1-2) Meds: Medications Discontinued Medications Generic Name Dose Route Start Last Admin Trade Name Jonahq PRN Reason Stop Dose Admin Sodium Chloride 1,000 mls @ 999 mls/hr 07/14/20 21:28 07/14/20 21:40 Normal Saline IV 07/14/20 22:28 999 mls/hr ONETIME ONE Administration Ondansetron HCl 4 mg 07/14/20 21:28 07/14/20 21:40 Zofran IVPUSH 07/14/20 21:29 4 mg ONETIME ONE Administration - Re-Assessments/Exams Free Text/Narrative Re-Assessment/Exam: 07/14/20 22:48 Labs reveal a WBC of 9.55, hemoglobin 13.9, hematocrit 42.8, sodium 146, potassium 3.3, anion gap 23.3, BUN 22, creatinine 0.9 magnesium 1.8, total bilirubin 1.4 Thing acute is appreciated on flatplate of the abdomen. Patient will be discharged to home. Recommend that she rest. Drink clear li quids for the next 24 hours and then advance to a bland diet. Prescription will be sent to her pharmacy for Zofran ODT. Departure - Departure Time of Disposition: 22:49 Disposition: Home, Self-Care 01 Condition: Good Clinical Impression: Gastroenteritis - Discharge Information Prescriptions: Ondansetron [Zofran ODT] 4 mg PO Q6H PRN #10 tab.dis PRN Reason: Nausea/Vomiting Instructions: Viral Gastroenteritis, Adult, [id number] Referrals: Al Montalvo MD [Primary Care Provider] - Forms: ED Department Discharge Additional Instructions: You were seen in the emergency department today with complaints of nausea, vomiting, diarrhea and fever started this morning. Labs did not appreciate an acute infection it is likely that you have a viral gastroenteritis. Recommend clear liquid diet for the next 24 hours such as Gatorade and chicken broth. Then after that a bland diet and advance as tolerated. Also recommend that you eat some bananas as your potassium level was slightly low. A prescription has been sent to your pharmacy for Zofran 4 mg ODT. You can take this every 6 hours as needed for nausea or vomiting. Recommend that you take it and wait at least a half an hour before eating or drinking so it can take full effect. Sepsis Event Note (ED) - Evaluation Sepsis Screening Result: No Definite Risk - Focused Exam Vital Signs: Vital Signs Temp Pulse Resp BP Pulse Ox 07/14/20 21:16 98.1 F 97 20 127/81 97 - My Orders Last 24 Hours: My Active Orders 07/14/20 21:28 Abdomen 1V Flat [CR] Stat 07/14/20 22:40 Alum Hydrox/Mag Hydrox/Simeth [Mag-Al Plus] 30 ml PO ONETIME ONE - Assessment/Plan Last 24 Hours: My Active Orders 07/14/20 21:28 Abdomen 1V Flat [CR] Stat 07/14/20 22:40 Alum Hydrox/Mag Hydrox/Simeth [Mag-Al Plus] 30 ml PO ONETIME ONE
[2020-07-14] MEDS ORDERED: Aluminum Hydroxide/Magnesium Hydroxide/Simethicone Susp 30 ML Cup PO ONE (22:40)
--- NOTE | 2020-07-16 11:36 | CR ---
Abdomen: Supine view of the abdomen was obtained. Comparison: No prior abdominal x-ray is available. Bowel gas pattern is normal. Two small calcifications are seen within the pelvis which are most likely due to phleboliths. No discrete soft tissue abnormality is seen. Bony structures are within normal limits. Impression: 1. Nothing acute is seen on supine abdominal x-ray. Diagnostic code #1
== END 2020-07-14 23:02 | disposition home or self-care (01) ==
LOC: JD.ED 21:07
DX: K52.9 Noninfective gastroenteritis and colitis, unspecified (principal); J45.909 Unspecified asthma, uncomplicated; K21.9 Gastro-esophageal reflux disease without esophagitis; E66.9 Obesity, unspecified; Z68.41 Body mass index [BMI] 40.0-44.9, adult; Z88.2 Allergy status to sulfonamides; Z88.1 Allergy status to other antibiotic agents
CPT/HCPCS: 36415; 74018; 80053; 83735; 85025; 96374; 99284; A9270; J2405; J7030; 99283

== ENCOUNTER 2021-02-22 08:06 | Emergency (ER) | payer MEDICAID ==
[2021-02-22] MEDS ORDERED: Famotidine 10 MG Tab PO ONE (08:34)
--- NOTE | 2021-02-22 08:40 | EDM.PDOC ---
ED HPI GENERAL MEDICAL PROBLEM - General Chief Complaint: Allergic Reaction Stated Complaint: POSS ALLERGIC REACTION TO MED Time Seen by Provider: 02/22/21 08:37 Source of Information: Reports: Patient History Limitations: Reports: No Limitations - History of Present Illness INITIAL COMMENTS - FREE TEXT/NARRATIVE: Patient is 20-year-old female with presentation of rash. Patient states she started a rash on the right side of her face and neck yesterday when the rash seemed to spread today. She reports 1 associated cold sore but no mucosal involvement no rash on her extremities or trunk. The rash is not itchy. No interventions performed prior to arrival. In addition, patient is reporting nausea, fatigue, body aches, sore throat. Patient is concerned about Guillen-Chata hnson syndrome as her was concerned. The patient states she started a new medication for her bipolar 4 days ago. Denies any preceding fevers. Generalized Pain Score (Numeric/FACES): 4 - Related Data Allergies Allergy/AdvReac Type Severity Reaction Status Date / Time sulfamethoxazole Allergy Rash Verified 02/22/21 08:13 [From Bactrim] trimethoprim [From Bactrim] Allergy Rash Verified 02/22/21 08:13 cefdinir AdvReac Delusions Verified 02/22/21 08:13 Home Meds: Home Meds Albuterol [Proventil Neb Soln] 0.63 mg NEB Q6H 09/18/19 [History] Albuterol [Ventolin HFA] 2 puff .XX Q4HR 09/18/19 [History] Budesonide/Formoterol Fumarate [Symbicort 160-4.5 Mcg Inhaler] 6 gm IH BID 09/18/19 [History] Docusate Sodium [Colace] 100 mg PO BID PRN 09/18/19 [History] Loratadine [Claritin] 10 mg PO DAILY 09/18/19 [History] Omeprazole Magnesium [Prilosec Otc] 40 mg PO DAILY 09/18/19 [History] No122/Iron/Folic Acid [ Multi Tablet] 1 each PO DAILY 09/18/19 [History] Sertraline [Zoloft] 100 mg PO DAILY 09/18/19 [History] Acetaminophen [Tylenol] 650 mg PO Q4H PRN tablet 09/21/19 [Rx] Ibuprofen [Motrin] 600 mg PO Q6H PRN tablet 09/21/19 [Rx] Ondansetron [Zofran ODT] 4 mg PO Q6H PRN #10 tab.dis 07/14/20 [Rx] Past Medical History HEENT History: Reports: Impaired Vision, Other (See Below) Other HEENT History: Scar tissue on ear drums, wears eyeglasses. Cardiovascular History: Reports: Other (See Below) Other Cardiovascular History: elevated triglycerides in past. 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 Musculoskeletal History: Reports: Back Pain, Chronic, Other (See Below) Other Musculoskeletal History: Lower back injury, buldging discs Neurological History: Reports: Headaches, Chronic, Migraines Psychiatric History: Reports: Bipolar, Depression Endocrine/Metabolic History: Reports: Obesity/BMI 30+ - Infectious Disease History Infectious Disease History: Reports: Herpes, Human Papilloma Virus (HPV) - Past Surgical History HEENT Surgical History: Reports: Oral Surgery GI Surgical History: Reports: Other (See Below) Other GI Surgeries/Procedures: endoscopy Musculoskeletal Surgical History: Reports: Carpal Tunnel Social & Family History - Family History Family Medical History: No Pertinent Family History - Tobacco Use Second Hand Smoke Exposure: No - Caffeine Use Caffeine Use: Reports: Coffee Other Caffeine Use: rarely - Recreational Drug Use Recreational Drug Use: Yes Drug Use in Last 12 Months: Yes Recreational Drug Type: Reports: Marijuana/Hashish ED ROS ALLERGIC REACTION - Review of Systems Review Of Systems: See Below Free Text/Narrative/Comment: In addition to that documented in the HPI above, the additional ROS was obtained: Constitutional: Denies fevers or chills Eyes: Denies vision changes ENMT: Per HPI CV: Denies chest pain Resp: Denies SOB GI: Denies vomiting or diarrhea : Denies painful urination MSK: Denies recent trauma Skin: Per HPI Neuro: Denies new numbness or tingling or weakness Endocrine: Denies unexpected weight loss Heme: Denies bleeding disorders ED EXAM GENERAL NO PERIP PULSE - Physical Exam Exam: See Below Text/Narrative:: I have reviewed the triage vital signs Const: Well nourished, well developed, appears stated age Eyes: Pupils Equal and reactive to light bilaterally, no conjunctival injection HENT: No signs of trauma or swelling, Neck supple without meningismus . Voice is normal. Uvula midline. No tonsillar swelling or exudates. CV: Regular Rate Rhythm, Warm, well-perfused extremities RESP: Unlabored respiratory effort GI: soft, non-tender, non-distended, no masses MSK: No gross deformities appreciated Skin: Very faint rash on the right side of patient's face. There is no vesicles, no wheal, no ulceration. No oral mucosal involvement. 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 Sensation and motor function of extremities grossly intact. Psych: Appropriate mood and affect. Exam Limited By: No Limitations Course - Vital Signs Last Recorded V/S: Last Vital Signs Temp 35.2 C L 02/22/21 08:10 Pulse 82 02/22/21 08:10 Resp 16 02/22/21 08:10 BP 120/85 02/22/21 08:10 Pulse Ox 96 02/22/21 08:10 - Orders/Labs/Meds Labs: Laboratory Tests 02/22/21 Range/Units 09:00 SARS-CoV-2 RNA (LEYDA) Negative (NEGATIVE) Meds: Medications Discontinued Medications Generic Name Dose Route Start Last Admin Trade Name Freq PRN Reason Stop Dose Admin Famotidine 10 mg 02/22/21 08:34 02/22/21 09:13 Famotidine 10 Mg Tab PO 02/22/21 08:35 10 mg ONETIME ONE Administration Departure - Departure Time of Disposition: 10:05 Disposition: Home, Self-Care 01 Clinical Impression: Viral upper respiratory infection - Discharge Information *PRESCRIPTION DRUG MONITORING PROGRAM REVIEWED*: Not Applicable *COPY OF PRESCRIPTION DRUG MONITORING REPORT IN PATIENT DANIEL: Not Applicable Instructions: Viral Respiratory Infection, [id number] Referrals: Fadi Garibay MD [Primary Care Provider] - Forms: ED Department Discharge Additional Instructions: Monitor your symptoms at home. Return to the emergency room if you develop high fevers, the rash spreads all over your body or if you have difficulty breathing. Otherwise, I recommend the use of famotidine or topical Benadryl at home for rash. Follow-up with primary care physician in the next 1 to 2 days. Sepsis Event Note (ED) - Evaluation Sepsis Screening Result: No Definite Risk - Focused Exam Vital Signs: Vital Signs Temp Pulse Resp BP Pulse Ox 02/22/21 08:10 35.2 C L 82 16 120/85 96 - Assessment/Plan Assessment:: Patient 20-year-old female presenting with symptoms consistent with viral respiratory infection. Patient has mild rash which may be allergic in nature but is unclear at this time. No evidence of Guillen-Guido syndrome or TEN. No anaphylaxis. COVID-19 test negative. All questions were addressed and answered. Patient agrees with plan of care. Return precautions discussed the usual.
== END 2021-02-22 10:20 | disposition home or self-care (01) ==
LOC: JD.ED 08:06
DX: J06.9 Acute upper respiratory infection, unspecified (principal); K21.9 Gastro-esophageal reflux disease without esophagitis; E66.9 Obesity, unspecified; J45.909 Unspecified asthma, uncomplicated; Z68.39 Body mass index [BMI] 39.0-39.9, adult; Z79.899 Other long term (current) drug therapy; Z88.1 Allergy status to other antibiotic agents; Z20.822 Contact with and (suspected) exposure to COVID-19
CPT/HCPCS: 87635; 99283; A9270; U0002

== ENCOUNTER 2025-04-05 12:20 | Observation (INO) | payer BC ==
[2025-04-05] MEDS ORDERED: Sodium Chloride 0.9% 10 ML Syringe FLUSH PRN (12:51)
[2025-04-05] MEDS: Heparin Sodium 5,000 Units/ML Vial SUBCUT ONE (14:18)
[2025-04-05] MEDS: cefOXitin 1 GM in Water For Injection, Sterile 10 ML IVPUSH ONE (14:25)
[2025-04-05] MEDS: Lactated Ringers 1,000 ML IV SCH ×2 (16:15→22:23)
[2025-04-05] MEDS ORDERED: propofoL 1,000 MG/100 ML 100 ML ONE (17:54)
[2025-04-05] MEDS ORDERED: Midazolam 1 MG/ML 2 ML SDV ONE (17:59)
[2025-04-05] MEDS ORDERED: fentaNYL 250 MCG/5 ML SDV ONE (17:59)
[2025-04-05] MEDS ORDERED: dexmedeTOMIDine HCl 200 MCG/2 ML SDV ONE (18:00)
[2025-04-05] MEDS ORDERED: Ondansetron 4 MG/2 ML SDV IVPUSH PRN (19:24)
[2025-04-05] MEDS ORDERED: Ketorolac 30 MG/ML SDV ONE (20:00)
[2025-04-05] MEDS ORDERED: Dexamethasone 4 MG/ML 5 ML MDV ONE (20:00)
[2025-04-05] MEDS ORDERED: Ondansetron 4 MG/2 ML SDV ONE (20:00)
[2025-04-05] MEDS ORDERED: fentaNYL 100 MCG/2 ML SDV ONE (20:00)
[2025-04-05] MEDS: Ketorolac 30 MG/ML SDV IVPUSH SCH (22:13)
[2025-04-05] MEDS: Heparin Sodium 5,000 Units/ML Vial SUBCUT SCH (22:13)
[2025-04-05] MEDS: Ciprofloxacin in D5W 400 MG in Premix Bag 1 BAG IV SCH (23:15)
[2025-04-06] MEDS: FLU (Flulaval) 25-26(6MOS UP)/PF 45 MCG/0.5 ML Syringe IM ONE (10:01)
== END 2025-04-06 08:41 | disposition home or self-care (01) ==
LOC: JD.ED 12:20 → JD.MS 14:03
PROVIDERS: ADMIT Surgery; ATTEND Surgery
DX: K35.30 Acute appendicitis with localized peritonitis, without perforation or gangrene (principal); K21.9 Gastro-esophageal reflux disease without esophagitis; F31.9 Bipolar disorder, unspecified; Z88.8 Allergy status to other drugs, medicaments and biological substances; Z79.899 Other long term (current) drug therapy
CPT/HCPCS: 44970; 96372; 96374; 96375; 96376; 99284; G0378; J0694; J0744; J1100; J1644; J1885; J2003; J2250; J2270; J2405; J2704; J3010; J7120; 00840; 99222; 99285; J1171; J3490